=== PATIENT | male | born 1955 | race Caucasian/White ===

== ENCOUNTER 2016-06-03 07:33 | Emergency (ER) | payer OTHER ==
[~2016-06-03] VITALS: Ht 177.8 cm; Wt 97.5 kg
[~2016-06-03 07:33] MED LIST: ASPI81TA82 PO; CHOL1CAP6 PO; GLUCTAB32 PO; TAB-TAB PO; WELL150T PO; Z.0.COMMODE-3:1; Z.0.WALKERFRONT; ZOCO40TA PO
[2016-06-03 07:35] VITALS: BP 148/90; PULSE 78; RESP 20; TEMP 97.7; O2SAT 98
[2016-06-03 07:52] VITALS: BP 134/101; PULSE 87; RESP 20; O2SAT 96
[2016-06-03] MEDS ORDERED: ASPI81CH CHEW (07:58)
[2016-06-03] MEDS ORDERED: SIMV20TA PO (07:58)
[2016-06-03] MEDS ORDERED: BUPR1TAB29 PO (07:58)
[2016-06-03] MEDS ORDERED: SODIUM CHLOR 0.9% 1000 ML INJ 1,000 ML IV SCH (09:10)
[2016-06-03] MEDS ORDERED: ONDANSETRON HCL 4 MG/2 ML VIAL IVP ONE (09:15)
[2016-06-03] MEDS ORDERED: MORPHINE SULFATE 4 MG/ML INJ IV PUSH ONE (09:15)
[2016-06-03] MEDS ORDERED: SODIUM CHLORIDE 0.9% FLUSH 5 ML FLUSH IVF PRN (09:15)
[2016-06-03] MEDS ORDERED: SODIUM CHLOR 0.9% 1000 ML INJ 1,000 ML IV ONE (09:15)
[2016-06-03] MEDS ORDERED: FAMOTIDINE 20 MG/2 ML VIAL IV PUSH ONE (09:15)
[2016-06-03 09:43] LABS: BLOOD, URINE NEG (NEG); COMMENT (UR) CULT NOT INDICATED; CULTURE IF INDICATED CULT NOT INDICATED; GLUCOSE,URINE NEG (NEG); KETONE, URINE NEG (NEG); MUCUS URINE MANY /lpf (OCC); NITRITE,URINE NEG (NEG); PH, URINE 5.5 (5.0-8.5); SQUAMOUS EPITHELIAL CELL URINE 1 /hpf (0-5); URINE COLOR YELLOW (YELLW/STRAW)
[2016-06-03 09:45] LABS: BASOPHIL # 0.1 TH/MM3 (0-0.2); BASOPHIL % 0.9 % (0.0-2.0); EOSINOPHIL # 0.4 TH/MM3 (0-0.4); EOSINOPHIL % 4.5 % (0.0-4.0); HEMO FLAGS DIFF FINAL; LYMPH % 17.6 % (9.0-44.0); LYMPHOCYTE # 1.6 TH/MM3 (1.0-4.8); MEAN CELL VOLUME 91.5 FL (80.0-100.0); MEAN CORPUSCULAR HEMOGLOBIN 32.5 PG (27.0-34.0); MEAN CORPUSCULAR HGB CONC 35.5 % (32.0-36.0); MONO % 11.9 % (0.0-8.0); NEUT % 65.1 % (16.0-70.0); PLATELET COUNT 222 TH/MM3 (150-450); RED CELL DISTRIBUTION WIDTH 12.6 % (11.6-17.2); WHITE BLOOD COUNT 9.3 TH/MM3 (4.0-11.0)
[2016-06-03 09:46] VITALS: BP 143/95; PULSE 67; RESP 20; O2SAT 99
[2016-06-03] MEDS ORDERED: DIATRIZOATE MEGLUM/DIATRIZOATE SOD 9 ML CUP ONE ×2 (09:51)
[2016-06-03 09:55] LABS: APTT (PATIENT) 29.2 SEC (24.3-30.1)
[2016-06-03 10:20] LABS: ALT (GPT) 69 U/L (12-78); ANION GAP 7 MEQ/L (5-15); AST (GOT) 18 U/L (15-37); BICARBONATE 25.6 MEQ/L (21.0-32.0); BLOOD UREA NITROGEN 11 MG/DL (7-18); CHLORIDE 106 MEQ/L (98-107); POTASSIUM 3.6 MEQ/L (3.5-5.1); SODIUM (NA) 139 MEQ/L (136-145)
[2016-06-03 10:21] LABS: ALKALINE PHOSPHATASE 46 U/L (45-117); TOTAL BILIRUBIN ADULT 0.6 MG/DL (0.2-1.0)
--- NOTE | 2016-06-03 11:06 | RADRPT ---
EXAM DATE/TIME: 06/03/2016 09:37 [facility] COMPARISON: HIP RIGHT AP ONLY, April 18, 2015, 11:40. INDICATIONS : Left upper quadrant pain. MEDICAL HISTORY : None. SURGICAL HISTORY : None. ENCOUNTER: Initial ACUITY: 1 day PAIN SCORE: 8/10 LOCATION: Left upper quadrant FINDINGS: A single view of the chest demonstrates the lungs to be symmetrically aerated without evidence of mas s, infiltrate or effusion. The cardiomediastinal contours are unremarkable. Osseous structures are intact. CONCLUSION: 1. No acute cardiopulmonary findings identified. Sean Garza MD on June 03, 2016 at 10:53 Board Certified Radiologist. This report was verified electronically.
[2016-06-03] MEDS ORDERED: IOHEXOL 350 MG/ML 10 ML VIAL (for RAD DIAG) IV ONE (11:10)
--- NOTE | 2016-06-03 11:16 | RADRPT ---
EXAM DATE/TIME: 06/03/2016 10:55 [facility] COMPARISON: No previous studies available for comparison. INDICATIONS : Abdomen pain for four days. IV CONTRAST: 100 cc Omnipaque 350 (iohexol) IV ORAL CONTRAST: No oral contrast ingested. RADIATION DOSE: 9.96 CTDIvol (mGy) MEDICAL HISTORY : None SURGICAL HISTORY : Left total hip. ENCOUNTER: Initial ACUITY: 4 - 6 days PAIN SCALE: 6/10 LOCATION: Bilateral abdomen. TECHNIQUE: Volumetric scanning of the abdomen and pelvis was performed. Using automated exposure control and ad justment of the mA and/or kV according to patient size, radiation dose was kept as low as reasonably achievable to obtain optimal diagnostic quality images. FINDINGS: The limited portion of the lung base visualized is clear. The appearance of the liver, spleen, adrenal glands and kidneys is within normal limits. The exam demonstrates an abnormal appearance of the tail of the pancreas. There are inflammatory curry ges evident surrounding the tail of the pancreas. This would be most consistent with focal, acute worley creatitis however followup to exclude an underlying mass is warranted. The splenic vein is patent. No pseudocyst is seen. There is some inflammation extending down into the left paracolic gutter. There is normal enhancement of the gland. There is no free intraperitoneal air. There were some small retroperitoneal lymph nodes in the periao rtic donny chain. The largest of these measures 1 cm. These are nonspecific in appearance. The aorta is normal in caliber. The visualized loops of small and large bowel are unremarkable. There is no free fluid within the pelvis. No iliac or inguinal adenopathy is present. The visualized loops of small and large bowel within the pelvis are unremarkable. The visualized bony structures demonstrate mild degenerative changes but are otherwise intact. CONCLUSION: 1. Abnormal appearance of the tail of the pancreas. There are inflammatory changes surrounding the ta il of the pancreas most consistent with acute pancreatitis. Followup to ensure there is no underlying mass is warranted. 2. There are some scattered nodes in the retroperitoneal donny chain the largest measuring 1 cm. Thes e are nonspecific in appearance. Sean Garza MD on June 03, 2016 at 11:10 Board Certified Radiologist. This report was verified electronically.
[2016-06-03] MEDS ORDERED: PERC5TAB12 PO (14:42)
[2016-06-03] MEDS ORDERED: ZOFR4TAB3 SL (14:42)
--- NOTE | 2016-06-03 14:46 | PD ---
HPI Chief Complaint: Abdominal Pain Time Seen by Provider: 08:58 Travel History International Travel<30 days: No Contact w/Intl Traveler<30days: No Traveled to known affect area: No History of Present Illness HPI Patient is a 60-year-old male who presents to emergency room with complaints of left upper abdominal pain to epigastric pain since . Patient reports that he has been having severe pain to his abdomen for the past few days, reports that he is able to eat, reports overall decreased oral intake. Patient reports that he does feel nauseous with meals as well as fluids. Reports that he had similar symptoms 1 week ago but resolved on its own. Patient with no sick contacts, no recent travels. Patient denies chest pain or shortness of breath. Patient reports that pain has been more severe this morning, reports that he came to the emergency room for further evaluation. PFSH Past Medical History Hx Anticoagulant Therapy: Yes Arthritis: Yes Blood Disorders: No Depression: Yes (States he was depressed leading up to his surgery but is currently not) Cancer: No Cardiovascular Problems: No High Cholesterol: Yes Diabetes: No Diminished Hearing: No Endocrine: No Glaucoma: No Genitourinary: No Hepatitis: Yes (TREATED FOR HEP YEARS AGO, ENLARGED LIVER) Hiatal Hernia: No Hypertension: No Immune Disorder: No Neurologic: No Psychiatric: No Reproductive: No Respiratory: No Thyroid Disease: No Tetanus Vaccination: Unknown Influenza Vaccination: No ?: Not Past Surgical History Abdominal Surgery: No AICD: No Body Medical Devices: LEFT HIP Cardiac Surgery: No Ear Surgery: No Endocrine Surgery: No Eye Surgery: No Genitourinary Surgery: No Gynecologic Surgery: No Joint Replacement: Yes (LEFT HIP) Oral Surgery: No Pacemaker: No Thoracic Surgery: No Other Surgery: Yes Social History Alcohol Use: Yes (daily 3-4 drinks) Tobacco Use: No Substance Use: No Allergies-Medications (Allergen,Severity, Reaction): Coded Allergies: Lolly Nut (Verified Allergy, Severe, FILBERT NUTS=HIVES, 06/03/16) states he is not allergic anymore. Reported Meds & Prescriptions Reported Meds & Active Scripts Active Zofran Odt (Ondansetron Odt) 4 Mg Tab 4 Mg SL Q6HR PRN Percocet (Oxycodone-Acetaminophen) 5-325 mg Tab 1 Tab PO Q6H PRN Reported Bupropion HCl ER 12 HR (Bupropion HCl) 150 Mg Tab 150 Mg PO DAILY Aspirin 81 Mg Chew 81 Mg CHEW DAILY Simvastatin 20 Mg Tab 20 Mg PO DAILY Review of Systems General / Constitutional: No: Fever, Chills Eyes: No: Visual changes HENT: No: Headaches Cardiovascular: No: Chest Pain or Discomfort Respiratory: No: Shortness of Breath Gastrointestinal: Positive: Nausea, Abdominal Pain, No: Vomiting Genitourinary: No: Dysuria Musculoskeletal: No: Pain Skin: No Rash Neurologic: No: Weakness Psychiatric: No: Depression Endocrine: No: Polydipsia Hematologic/Lymphatic: No: Easy Bruising Physical Exam Narrative GENERAL: Mild distress SKIN: Warm and dry. HEAD: Atraumatic. Normocephalic. EYES: Pupils equal and round. No scleral icterus. No injection or drainage. ENT: No nasal bleeding or discharge. Mucous membranes pink and moist. NECK: Trachea midline. No JVD. CARDIOVASCULAR: Regular rate and rhythm. No murmur appreciated. RESPIRATORY: No accessory muscle use. Clear to auscultation. Breath sounds equal bilaterally. GASTROINTESTINAL: Abdomen soft, increased tenderness to the left upper quadrant and epigastrium with no rebound or guarding on exam MUSCULOSKELETAL: No obvious deformities. No clubbing. No cyanosis. No edema. NEUROLOGICAL: Awake and alert. No obvious cranial nerve deficits. Motor grossly within normal limits. Normal speech. PSYCHIATRIC: Appropriate mood and affect; insight and judgment normal. Data Data Last Documented VS Vital Signs Date Time Temp Pulse Resp B/P Pulse Ox O2 Delivery O2 Flow Rate FiO2 06/03/16 14:56 71 20 141/91 99 Room Air 06/03/16 07:35 97.7 Orders Electrocardiogram (06/03/16 ) Complete Blood Count With Diff (06/03/16 09:10) Comprehensive Metabolic Panel (06/03/16 09:10) Lipase (06/03/16 09:10) Prothrombin Time / Inr (Pt) (06/03/16 09:10) Act Partial Throm Time (Ptt) (06/03/16 09:10) Urinalysis - C+S If Indicated (06/03/16 09:10) Iv Access Insert/Monitor (06/03/16 09:10) Ecg Monitoring (06/03/16 09:10) NPO (06/03/16 09:10) Morphine Inj (Morphine Inj) (06/03/16 09:15) Ondansetron Inj (Zofran Inj) (06/03/16 09:15) Sodium Chlor 0.9% 1000 Ml Inj (Ns 1000 M (06/03/16 09:10) Sodium Chloride 0.9% Flush (Ns Flush) (06/03/16 09:15) Chest, Single Ap (06/03/16 09:10) Famotidine Inj (Pepcid Inj) (06/03/16 09:15) Ct Abd/Pel W Iv Contrast(Rout) (06/03/16 09:10) Sodium Chlor 0.9% 1000 Ml Inj (Ns 1000 M (06/03/16 09:15) Oral Contrast - Adult (06/03/16 09:17) Diatrizoate Liq ( Gastroview Liq) (06/03/16 09:51) Diatrizoate Liq ( Gastroview Liq) (06/03/16 09:51) Iohexol 350 Inj (Omnipaque 350 Inj) (06/03/16 11:10) Labs Laboratory Tests Test 06/03/16 09:15 White Blood Count 9.3 TH/MM3 Red Blood Count 4.70 MIL/MM3 Hemoglobin 15.3 GM/DL Hematocrit 43.0 % Mean Corpuscular Volume 91.5 FL Mean Corpuscular Hemoglobin 32.5 PG Mean Corpuscular Hemoglobin 35.5 % Concent Red Cell Distribution Width 12.6 % Platelet Count 222 TH/MM3 Mean Platelet Volume 9.0 FL Neutrophils (%) (Auto) 65.1 % Lymphocytes (%) (Auto) 17.6 % Monocytes (%) (Auto) 11.9 % Eosinophils (%) (Auto) 4.5 % Basophils (%) (Auto) 0.9 % Neutrophils # (Auto) 6.0 TH/MM3 Lymphocytes # (Auto) 1.6 TH/MM3 Monocytes # (Auto) 1.1 TH/MM3 Eosinophils # (Auto) 0.4 TH/MM3 Basophils # (Auto) 0.1 TH/MM3 CBC Comment DIFF FINAL Differential Comment Prothrombin Time 11.0 SEC Prothromb Time International 1.0 RATIO Ratio Activated Partial 29.2 SEC Thromboplast Time Urine Color YELLOW Urine Turbidity CLEAR Urine pH 5.5 Urine Specific [place] 1.026 Urine Protein TRACE mg/dL Urine Glucose (UA) NEG mg/dL Urine Ketones NEG mg/dL Urine Occult Blood NEG Urine Nitrite NEG Urine Bilirubin NEG Urine Urobilinogen LESS THAN 2.0 MG/DL Urine Leukocyte Esterase NEG Urine WBC LESS THAN 1 /hpf Urine Squamous Epithelial 1 /hpf Cells Urine Mucus MANY /lpf Microscopic Urinalysis Comment CULT NOT INDICATED Sodium Level 139 MEQ/L Potassium Level 3.6 MEQ/L Chloride Level 106 MEQ/L Carbon Dioxide Level 25.6 MEQ/L Anion Gap 7 MEQ/L Blood Urea Nitrogen 11 MG/DL Creatinine 0.77 MG/DL Random Glucose 118 MG/DL Calcium Level 8.9 MG/DL Total Bilirubin 0.6 MG/DL Aspartate Amino Transf 18 U/L (AST/SGOT) Alanine Aminotransferase 69 U/L (ALT/SGPT) Alkaline Phosphatase 46 U/L Total Protein 7.7 GM/DL Albumin 3.7 GM/DL Lipase 1771 U/L MDM Medical Decision Making Medical Screen Exam Complete: Yes Emergency Medical Condition: Yes Interpretation(s) EKG at 0957: Normal sinus rhythm at 64 beats minute, QT/QTc 385/395 Vital Signs Date Time Temp Pulse Resp B/P Pulse Ox O2 Delivery O2 Flow Rate FiO2 06/03/16 10:01 18 06/03/16 09:46 67 20 143/95 99 Room Air 06/03/16 07:52 87 20 134/101 96 Room Air 06/03/16 07:52 20 06/03/16 07:35 97.7 78 20 148/90 98 Room Air CBC & BMP Diagram 06/03/16 09:15 Laboratory Tests Test 06/03/16 09:15 White Blood Count 9.3 TH/MM3 (4.0-11.0) Red Blood Count 4.70 MIL/MM3 (4.50-5.90) Hemoglobin 15.3 GM/DL (13.0-17.0) Hematocrit 43.0 % (39.0-51.0) Mean Corpuscular Volume 91.5 FL (80.0-100.0) Mean Corpuscular Hemoglobin 32.5 PG (27.0-34.0) Mean Corpuscular Hemoglobin 35.5 % Concent (32.0-36.0) Red Cell Distribution Width 12.6 % (11.6-17.2) Platelet Count 222 TH/MM3 (150-450) Mean Platelet Volume 9.0 FL (7.0-11.0) Neutrophils (%) (Auto) 65.1 % (16.0-70.0) Lymphocytes (%) (Auto) 17.6 % (9.0-44.0) Monocytes (%) (Auto) 11.9 % (0.0-8.0) Eosinophils (%) (Auto) 4.5 % (0.0-4.0) Basophils (%) (Auto) 0.9 % (0.0-2.0) Neutrophils # (Auto) 6.0 TH/MM3 (1.8-7.7) Lymphocytes # (Auto) 1.6 TH/MM3 (1.0-4.8) Monocytes # (Auto) 1.1 TH/MM3 (0-0.9) Eosinophils # (Auto) 0.4 TH/MM3 (0-0.4) Basophils # (Auto) 0.1 TH/MM3 (0-0.2) CBC Comment DIFF FINAL Differential Comment Prothrombin Time 11.0 SEC (9.8-11.6) Prothromb Time International 1.0 RATIO Ratio Activated Partial 29.2 SEC Thromboplast Time (24.3-30.1) Urine Color YELLOW (YELLW/STRAW) Urine Turbidity CLEAR (CLEAR) Urine pH 5.5 (5.0-8.5) Urine Specific [place] 1.026 (1.002-1.035) Urine Protein TRACE mg/dL (NEG-TRACE) Urine Glucose (UA) NEG mg/dL (NEG) Urine Ketones NEG mg/dL (NEG) Urine Occult Blood NEG (NEG) Urine Nitrite NEG (NEG) Urine Bilirubin NEG (NEG) Urine Urobilinogen LESS THAN 2.0 MG/DL (LESS THAN 2.0) Urine Leukocyte Esterase NEG (NEG) Urine WBC LESS THAN 1 /hpf (0-5) Urine Squamous Epithelial 1 /hpf (0-5) Cells Urine Mucus MANY /lpf (OCC) Microscopic Urinalysis Comment CULT NOT INDICATED Sodium Level 139 MEQ/L (136-145) Potassium Level 3.6 MEQ/L (3.5-5.1) Chloride Level 106 MEQ/L (98-107) Carbon Dioxide Level 25.6 MEQ/L (21.0-32.0) Anion Gap 7 MEQ/L (5-15) Blood Urea Nitrogen 11 MG/DL (7-18) Creatinine 0.77 MG/DL (0.60-1.30) Random Glucose 118 MG/DL (74-106) Calcium Level 8.9 MG/DL (8.5-10.1) Total Bilirubin 0.6 MG/DL (0.2-1.0) Aspartate Amino Transf 18 U/L (15-37) (AST/SGOT) Alanine Aminotransferase 69 U/L (12-78) (ALT/SGPT) Alkaline Phosphatase 46 U/L (45-117) Total Protein 7.7 GM/DL (6.4-8.2) Albumin 3.7 GM/DL (3.4-5.0) Lipase 1771 U/L (73-393) Last Impressions Chest X-Ray 06/03/16909 Signed Impressions: Service Date/Time: Friday, June 03, 2016 09:37 - CONCLUSION: 1. No acute cardiopulmonary findings identified. Sean Garza MD Abdomen/Pelvis CT 06/03/16909 Signed Impressions: Service Date/Time: Friday, June 03, 2016 10:55 - CONCLUSION: 1. Abnormal appearance of the tail of the pancreas. There are inflammatory changes surrounding the tail of the pancreas most consistent with acute pancreatitis. Followup to ensure there is no underlying mass is warranted. 2. There are some scattered nodes in the retroperitoneal donny chain the largest measuring 1 cm. These are nonspecific in appearance. Sean Garza MD Differential Diagnosis Gastritis, gastric ulcer, ACS, pancreatitis, electrolyte abnormality, GERD Narrative Course Patient is a 60-year-old male who presents to emergency room with complaints of upper abdominal pain since . Patient reports that he has been feeling nauseous but has been able to eat and drink. Reports overall decreased oral intake. Reports that pain became severe today which prompted him to go to the ER for evaluation. Patient reports that he did see his primary care doctor on morning and because he had similar symptoms the prior week, a CT of abdomen this pelvis was ordered without contrast. Patient reports that he could not wait to go for this outpatient study has pain was too severe. cbc: wnl bmp: gluse 118, sodium 139, chloride 106, potassium 3.6, bun 11, cr 0.77 Lipase 1771 chest xray: no acute findings ct abd pelvis: Last Impressions Chest X-Ray 06/03/16909 Signed Impressions: Service Date/Time: Friday, June 03, 2016 09:37 - CONCLUSION: 1. No acute cardiopulmonary findings identified. Sean Garza MD Abdomen/Pelvis CT 06/03/16 0910 Signed Impressions: Service Date/Time: Friday, June 03, 2016 10:55 - CONCLUSION: 1. Abnormal appearance of the tail of the pancreas. There are inflammatory changes surrounding the tail of the pancreas most consistent with acute pancreatitis. Followup to ensure there is no underlying mass is warranted. 2. There are some scattered nodes in the retroperitoneal donny chain the largest measuring 1 cm. These are nonspecific in appearance. Sean Garza MD Results of all labs and all studies were reviewed patient in detail. A copy patient's CT result was given to him. Patient was offered admission to the hospital for pain control and for further evaluation of his abdominal pain. Patient refuses admission at this time and would like to go home and follow up with his primary care doctor. As per pt's pancreatitis, pt reports past history of alcoholism - reports that he is a recovering alcoholic Call made to patient's primary care doctor Dr. Mac Barrientos, I reviewed with him all of patient's concerning findings on his labs as well as CAT scan. Request that patient call to be followed-up in the office tomorrow. Signs and symptoms of when to return to the emergency room reviewed with patient in detail. Patient appreciative of care. Diagnosis Primary Impression: Pancreatitis, acute Qualified Code: K85.90 - Acute pancreatitis, unspecified complication status, unspecified pancreatitis type Patient Instructions: General Instructions, Narcotic given in the ED Additional Instructions: Please provide a copy of lab work as well as a copy of CT report at discharge* * Please follow-up with your primary care doctor tomorrow Return to ER as needed Do not drive or operate heavy machinery while taking narcotic pain medications. Med/Other Pt SpecificInfo: Prescription(s) given Scripts Ondansetron Odt (Zofran Odt)4 Mg Tab4 Mg SL Q6HR PRN (Nausea/Vomiting) #30 TAB Ref 0 Prov:Denise Zamarripa DO 06/03/16 Oxycodone-Acetaminophen (Percocet)5-325 mg Tab1 Tab PO Q6H PRN (PAIN) #15 TAB Ref 0 Prov:Denise Zamarripa DO 06/03/16 Disposition: 01 DISCHARGE HOME Condition: Fair Denise Zamarripa DO Jun 03, 2016 14:46 Denise Zamarripa DO Jun 03, 2016 14:46
[2016-06-03 14:56] VITALS: BP 141/91; PULSE 71; RESP 20; O2SAT 99
--- NOTE | 2016-06-03 17:08 | EKG ---
Date Performed: 06/03/2016 Time Performed: 09:57:16 PTAGE: 60 years EKG: Sinus rhythm Compared to prior tracing no significant change NORMAL ECG PREVIOUS TRACING : 11/13/2014 18.34 DOCTOR: Jennie Moscoso Interpretating Date/Time 06/03/2016 17:06:21
== END 2016-06-03 15:17 | disposition home or self-care (01) ==
LOC: NEPE 07:33
DX: K85.90 Acute pancreatitis without necrosis or infection, unspecified (principal); Z79.01 Long term (current) use of anticoagulants; E78.00 Pure hypercholesterolemia, unspecified
CPT/HCPCS: 71010; 74177; 80053; 81001; 83690; 85025; 85610; 85730; 93005; 96361; 96374; 96375; 99284; J2270; J2405; J7030; Q9963; Q9967